=== PATIENT | male | born 2000 | race Caucasian/White ===

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

== ENCOUNTER 2025-03-24 07:19 | Emergency (ER) | payer BC, OTHER ==
[~2025-03-24] VITALS: Ht 190.5 cm; Wt 91.1 kg
[2025-03-24] MEDS ORDERED: SODIUM CHLORIDE 0.9% 500 ML IV ONE (07:45)
[2025-03-24 07:46] LABS: BASOPHILS 0.3 % (0.2-1.2); EOSINOPHILS 0.4 % (0.8-7.0); LYMPHOCYTES 8.1 % (21.8-53.1); MCH 28.8 PG (25.7-32.2); MCHC 33.5 g/dL (32.3-36.5); MCV 86.0 fL (79.0-92.2); MONOCYTES 7.3 % (5.3-12.2); NEUTROPHILS 83.4 % (34.0-67.9); RBC 5.41 M/uL (4.63-6.08)
[2025-03-24 08:06] LABS: ALT (SGPT) 29.0 U/L (14-59); AST (SGOT) 23.0 U/L (15-37); GLOMERULAR FILTRATION RATE,EST 83.0 mL/min (>60); PROTEIN, TOTAL 7.8 g/dL (6.4-8.2); UREA NITROGEN 13.0 mg/dL (7-18)
[2025-03-24 09:15] VITALS: BP 130/85
--- NOTE | 2025-03-25 23:18 | EKG ---
[facility] [address] [facility] [place] [address] Signed Normal sinus rhythm Rightward axis Borderline ECG No previous ECGs available Confirmed by Racheal Hobson MD () on 03/25/2025 11:18:39 PM Electronically Signed By: RACHEAL HOBSON MD 03/25/25 2318 PATIENT NAME: FANTA COTTRELL Electrocardiogram DATE OF : [birth year] PHYSICIAN: RACHEAL HOBSON MD REPORT #: [id number] REPORT IS CONFIDENTIAL AND NOT TO BE RELEASED WITHOUT AUTHORIZATION
== END 2025-03-24 09:15 | disposition home or self-care (01) ==
LOC: ED 07:19
PROVIDERS: Emergency Medicine
DX: R55 Syncope and collapse (principal); R19.7 Diarrhea, unspecified
CPT/HCPCS: 36415; 80053; 83735; 85025; 93005; 93010; 96361; 96374; 99284-25; J2405; J7040